=== PATIENT | female | born 1965 | race Two or more races ===

== ENCOUNTER 2018-09-21 05:46 | Day surgery (SDC) | payer OTHER ==
[~2018-09-21 05:46] MED LIST: TAMOXIFEN CITRA20 MG PO
== END 2018-09-21 12:10 | disposition home or self-care (01) ==
LOC: CIR.AMB 05:46
DX: N65.1 Disproportion of reconstructed breast (principal); Z90.13 Acquired absence of bilateral breasts and nipples

== ENCOUNTER 2022-06-13 07:59 | Outpatient (CLI) | payer OTHER | END 2022-06-13 08:05 | disposition home or self-care (01) | LOC: SONOGRAMA 07:59 | PROVIDERS: ATTEND Pathology Anatomic Pathology | DX: E04.2 Nontoxic multinodular goiter (principal); E04.1 Nontoxic single thyroid nodule; D34 Benign neoplasm of thyroid gland ==